=== PATIENT | female | born 1990 | race American Indian/Alaskan Native ===

== ENCOUNTER 2021-06-26 14:29 | Emergency (ER) | payer SELFPAY ==
[2021-06-26 15:56] LABS: Basophils # (Auto) 0.1 K/mm3 (0.0-0.1); Basophils % (Auto) 1.1 % (0.0-1.8); Eosinophils % (Auto) 0.4 % (0.0-4.3); Hematocrit 43.7 % (30.3-42.9); Lymphocytes # (Auto) 2.2 K/mm3 (1.2-5.4); Lymphocytes % (Auto) 34.3 % (13.4-35.0); Mean Corpuscular HGB Conc 32 % (30-34); Mean Corpuscular Volume 92 fl (79-97); Monocytes # (Auto) 0.5 K/mm3 (0.0-0.8); Monocytes % (Auto) 8.4 % (0.0-7.3); Platelet Count 349 K/mm3 (140-440); Red Blood Count 4.77 M/mm3 (3.65-5.03)
[2021-06-26 15:57] LABS: Red Cell Distribution Width 20.5 % (13.2-15.2)
[2021-06-26 16:22] LABS: Alanine Aminotransferase 50 units/L (7-56); Albumin 4.5 g/dL (3.9-5); BUN/Creatinine Ratio 9; Blood Urea Nitrogen 8 mg/dL (7-17); Calcium 8.7 mg/dL (8.4-10.2); Hemolysis Index 62
--- NOTE | 2021-06-26 19:55 | Emergency Department Report ---
<JUDITH SMALLS - Last Filed: 06/26/21 19:53> ED General Adult HPI - General Chief complaint: Alcohol Stated complaint: ETOH Time Seen by Provider: 06/26/21 14:51 Source: EMS Mode of arrival: Ambulatory Limitations: Other - History of Present Illness Initial comments: Patient presents to the emergency department via EMS per request of PD. Per EMS the patient was being either discharged or evicted from her place of living when she became irate with the staff there and they called PD. Upon PTs arrival they noticed the patient show signs of intoxication and brought to the emergency department for evaluation. Upon my initial evaluation the patient states she does not want to speak to me and begins to curse. Patient became very belligerent with staff and was trying to leave in the state of what appeared to be acute intoxication 2013 was applied. -: unknown Consistency: constant Improves with: none Worsens with: none Treatments Prior to Arrival: none - Related Data Previous Rx's Medication Instructions Recorded Last Taken Type Multivitamin with Folic Acid [[facility] 400 mcg PO QDAY #30 tablet 06/27/21 Unknown Rx One Daily Essential Tablet] Ondansetron [Zofran Odt] 4 mg PO Q8HR PRN #20 tab.rapdis 06/27/21 Unknown Rx ED Review of Systems Comment: All other systems reviewed and negative Constitutional: denies: chills, fever Eyes: denies: eye pain, eye discharge, vision change ENT: denies: ear pain, throat pain Respiratory: denies: cough, shortness of breath, wheezing Cardiovascular: denies: chest pain, palpitations Endocrine: no symptoms reported Gastrointestinal: denies: abdominal pain, nausea, diarrhea Genitourinary: denies: urgency, dysuria, discharge Musculoskeletal: denies: back pain, joint swelling, arthralgia Skin: denies: rash, lesions Neurological: denies: headache, weakness, paresthesias Psychiatric: denies: anxiety, depression Hematological/Lymphatic: denies: easy bleeding, easy bruising ED Past Medical Hx - Medications Home Medications: Home Medications Medication Instructions Recorded Confirmed Last Taken Type Multivitamin with Folic Acid [[facility] 400 mcg PO QDAY #30 tablet 06/27/21 Unknown Rx One Daily Essential Tablet] Ondansetron [Zofran Odt] 4 mg PO Q8HR PRN #20 tab.rapdis 06/27/21 Unknown Rx ED Physical Exam - General Limitations: Other General appearance: alert, in no apparent distress, appears intoxicated - Head Head exam: Present: atraumatic, normocephalic - Eye Eye exam: Present: normal appearance - ENT ENT exam: Present: mucous membranes moist - Neck Neck exam: Present: normal inspection - Respiratory Respiratory exam: Present: normal lung sounds bilaterally. Absent: respiratory distress - Cardiovascular Cardiovascular Exam: Present: normal rhythm, tachycardia. Absent: systolic murmur, diastolic murmur, rubs, gallop - GI/Abdominal GI/Abdominal exam: Present: soft, normal bowel sounds. Absent: distended, tenderness - Extremities Exam Extremities exam: Present: normal inspection - Back Exam Back exam: Present: normal inspection - Neurological Exam Neurological exam: Present: alert, oriented X3, other (Patient would not cooperate with a full exam for neurological evaluation) - Psychiatric Psychiatric exam: Present: other (Patient would not allow for complete psychiatric exam) - Skin Skin exam: Present: warm, dry, intact, normal color. Absent: rash ED Medical Decision Making - Lab Data Result diagrams: 06/26/21 15:42 06/26/21 15:42 Lab Results 06/26/21 06/26/21 06/26/21 Range/Units 15:42 15:42 15:42 WBC 6.6 (4.5-11.0) K/mm3 RBC 4.77 (3.65-5.03) M/mm3 Hgb 14.0 (10.1-14.3) gm/dl Hct 43.7 H (30.3-42.9) % MCV 92 (79-97) fl MCH 29 (28-32) pg MCHC 32 (30-34) % RDW 20.5 H (13.2-15.2) % Plt Count 349 (140-440) K/mm3 Lymph % (Auto) 34.3 (13.4-35.0) % [place] % (Auto) 8.4 H (0.0-7.3) % Eos % (Auto) 0.4 (0.0-4.3) % Baso % (Auto) 1.1 (0.0-1.8) % Lymph # (Auto) 2.2 (1.2-5.4) K/mm3 [place] # (Auto) 0.5 (0.0-0.8) K/mm3 Eos # (Auto) 0.0 (0.0-0.4) K/mm3 Baso # (Auto) 0.1 (0.0-0.1) K/mm3 Seg Neutrophils % 55.8 (40.0-70.0) % Seg Neutrophils # 3.7 (1.8-7.7) K/mm3 Sodium 147 H (137-145) mmol/L Potassium 4.5 (3.6-5.0) mmol/L Chloride 106.8 (98-107) mmol/L Carbon Dioxide 20 L (22-30) mmol/L Anion Gap 25 mmol/L BUN 8 (7-17) mg/dL Creatinine 0.9 (0.6-1.2) mg/dL Estimated GFR > 60 ml/min BUN/Creatinine Ratio 9 % Glucose 105 H (65-100) mg/dL Calcium 8.7 (8.4-10.2) mg/dL Total Bilirubin 0.40 (0.1-1.2) mg/dL AST 72 H (5-40) units/L ALT 50 (7-56) units/L Alkaline Phosphatase 74 (35-129) units/L Total Protein 8.2 (6.3-8.2) g/dL Albumin 4.5 (3.9-5) g/dL Albumin/Globulin Ratio 1.2 % Plasma/Serum Alcohol 0.46 H (0-0.07) % - Medical Decision Making 2012 applied Awaiting EtOH clearance ED Disposition Clinical Impression: Alcohol intoxication Disposition: 01 HOME / SELF CARE / HOMELESS Condition: Good Instructions: Alcohol Intoxication, [id number] Additional Instructions: We recommend that the patient not drive or operate motor vehicles until cleared to do so by her primary care doctor. We recommend follow-up with a primary care doctor within the next month. We recommend the patient avoid consumption of alcohol. We recommend that the patient drink 4 to 6 cups of water per day indefinitely. Advance diet as tolerated. Patient is likely feeling weak, dehydrated and nauseous, likely secondary to alcohol intoxication, and subsequent hangover. Please return to the emergency room right away with new pain, worsened pain, migration of pain, projectile vomiting, change in mental status, confusion, inability to tolerate liquid feeds, new, worsened or different symptoms not present on the initial emergency room evaluation. Referrals: [facility] [Provider Group] - 3-5 Days PRIMARY CARE, [Primary Care Provider] - 3-5 Days <SWEETIE GAINES - Last Filed: 06/27/21 02:05> ED Course - Reevaluation(s) Reevaluation #1: 06/26/21 23:05 Received sign-out from Dr Smalls. Pt with initial ETOH of 460. Pt has slurred speech, is obviously still intoxicated. Pt unable to find a ride home. Will continue to monitor until sober. ED Medical Decision Making - Lab Data Result diagrams: 06/26/21 15:42 06/26/21 15:42 <REYNASHEILA - Last Filed: 06/27/21 06:02> ED Review of Systems ROS: Stated complaint: ETOH Other details as noted in HPI ED Course Vital Signs 06/26/21 06/26/21 06/26/21 15:13 16:18 20:30 Temperature 98.7 F Pulse Rate 110 H 116 H Respiratory 16 19 Rate Blood Pressure 149/69 138/101 [Right] O2 Sat by Pulse 98 99 Oximetry 06/27/21 01:15 Temperature 98.5 F Pulse Rate 94 H Respiratory 16 Rate Blood Pressure 151/92 [Right] O2 Sat by Pulse 100 Oximetry - Reevaluation(s) Reevaluation #1: 06/27/21 06:00 Patient signed out to me from Dr. Gaines. Patient has been in this department for approximately 16 hours. At this point in time, the patient is awake, alert, oriented, sober, and exhibits decision-making capacity. She tells me that she feels dehydrated. She is drinking ice water. She is not homicidal suicidal. She is not having hallucinations. She states that she has a safe place to go. She believes that she is not . Advised patient to avoid recreational alcohol consumption. We discussed moderation. She is also interested in following up with a local primary care doctor. Outpatient resources provided. Return precautions are reviewed. 2012 will be discontinued. ED Medical Decision Making - Lab Data Result diagrams: 06/26/21 15:42 06/26/21 15:42 Lab Results 06/26/21 06/26/21 06/26/21 Range/Units 15:42 15:42 15:42 WBC 6.6 (4.5-11.0) K/mm3 RBC 4.77 (3.65-5.03) M/mm3 Hgb 14.0 (10.1-14.3) gm/dl Hct 43.7 H (30.3-42.9) % MCV 92 (79-97) fl MCH 29 (28-32) pg MCHC 32 (30-34) % RDW 20.5 H (13.2-15.2) % Plt Count 349 (140-440) K/mm3 Lymph % (Auto) 34.3 (13.4-35.0) % [place] % (Auto) 8.4 H (0.0-7.3) % Eos % (Auto) 0.4 (0.0-4.3) % Baso % (Auto) 1.1 (0.0-1.8) % Lymph # (Auto) 2.2 (1.2-5.4) K/mm3 [place] # (Auto) 0.5 (0.0-0.8) K/mm3 Eos # (Auto) 0.0 (0.0-0.4) K/mm3 Baso # (Auto) 0.1 (0.0-0.1) K/mm3 Seg Neutrophils % 55.8 (40.0-70.0) % Seg Neutrophils # 3.7 (1.8-7.7) K/mm3 Sodium 147 H (137-145) mmol/L Potassium 4.5 (3.6-5.0) mmol/L Chloride 106.8 (98-107) mmol/L Carbon Dioxide 20 L (22-30) mmol/L Anion Gap 25 mmol/L BUN 8 (7-17) mg/dL Creatinine 0.9 (0.6-1.2) mg/dL Estimated GFR > 60 ml/min BUN/Creatinine Ratio 9 % Glucose 105 H (65-100) mg/dL Calcium 8.7 (8.4-10.2) mg/dL Total Bilirubin 0.40 (0.1-1.2) mg/dL AST 72 H (5-40) units/L ALT 50 (7-56) units/L Alkaline Phosphatase 74 (35-129) units/L Total Protein 8.2 (6.3-8.2) g/dL Albumin 4.5 (3.9-5) g/dL Albumin/Globulin Ratio 1.2 % Plasma/Serum Alcohol 0.46 H (0-0.07) % Vital Signs 06/26/21 06/26/21 06/26/21 15:13 16:18 20:30 Temperature 98.7 F Pulse Rate 110 H 116 H Respiratory 16 19 Rate Blood Pressure 149/69 138/101 [Right] O2 Sat by Pulse 98 99 Oximetry 06/27/21 01:15 Temperature 98.5 F Pulse Rate 94 H Respiratory 16 Rate Blood Pressure 151/92 [Right] O2 Sat by Pulse 100 Oximetry Critical care attestation.: If time is entered above; I have spent that time in minutes in the direct care of this critically ill patient, excluding procedure time. ED Disposition Is pt being admited?: No Does the pt Need Aspirin: No
[2021-06-27 02:16] VITALS: BP 151/92
== END 2021-06-27 06:53 | disposition home or self-care (01) ==
LOC: ED 14:29
DX: F10.129 Alcohol abuse with intoxication, unspecified (principal)
CPT/HCPCS: 36415; 80053; 80320; 85025; 99284; G0480

== ENCOUNTER 2021-07-25 09:49 | Inpatient (IN) | payer SELFPAY ==
--- NOTE | 2021-07-25 09:55 | Emergency Department Report ---
ED Lower Extremity HPI - General Chief Complaint: Extremity Injury, Lower Stated Complaint: Foot twisted going down stairs Time Seen by Provider: 07/25/21 09:51 Source: patient Mode of arrival: Ambulatory Limitations: No Limitations - History of Present Illness Initial Comments: 31 year female presents to ED with complaints of right ankle/foot pain and i njury. Onset yesterday. Patient states she was walking down stairs when she slipped, twisted her ankle and fell. She states she was walking down the stairs and was on the either the 4th or 5th steps when she fell. She states she thinks the steps were wet. This occurred at home. She reports associated swelling, bruising and inability to bear weight on that right ankle/foot since the injury. She states that last night she tried icing it as well as taking Tylenol and elevating it but without much relief. She denies any prior injury to her right ankle or foot in the past. MD Complaint: ankle injury, foot injury -: Last night - Related Data Previous Rx's Medication Instructions Recorded Last Taken Type Multivitamin with Folic Acid [[facility]vs 400 mcg PO QDAY #30 tablet 06/27/21 Unknown Rx One Daily Essential Tablet] Ondansetron [Zofran Odt] 4 mg PO Q8HR PRN #20 tab.rapdis 06/27/21 Unknown Rx Allergies Allergy/AdvReac Type Severity Reaction Status Date / Time ziprasidone [From Geodon] Allergy Severe Anaphylaxis Verified 07/25/21 12:54 ED Review of Systems ROS: Stated complaint: Foot twisted going down stairs Other details as noted in HPI Comment: All other systems reviewed and negative Constitutional: denies: chills, fever Respiratory: denies: cough, shortness of breath, wheezing Cardiovascular: denies: chest pain, palpitations Musculoskeletal: joint swelling, arthralgia Skin: change in color Neurological: abnormal gait Psychiatric: denies: anxiety, depression, auditory hallucinations, visual hallucinations, homicidal thoughts Hematological/Lymphatic: denies: easy bleeding, easy bruising ED Past Medical Hx - Medications Home Medications: Home Medications Medication Instructions Recorded Confirmed Last Taken Type Multivitamin with Folic Acid [[facility]vs 400 mcg PO QDAY #30 tablet 06/27/21 Unknown Rx One Daily Essential Tablet] Ondansetron [Zofran Odt] 4 mg PO Q8HR PRN #20 tab.rapdis 06/27/21 Unknown Rx ED Physical Exam - General Limitations: No Limitations General appearance: alert, in distress (mild secondary to pain ), obese - Head Head exam: Present: atraumatic, normocephalic, normal inspection - Eye Eye exam: Present: normal appearance, PERRL, EOMI Pupils: Present: normal accommodation - Respiratory Respiratory exam: Absent: respiratory distress - Cardiovascular Cardiovascular Exam: Present: regular rate - Expanded Lower Extremity Exam Right Ankle exam: Present: tenderness (severe ttp diffusely about right ankle especially medial aspect ), swelling (moderate), abrasion (superficial anterior ankle ), ecchymosis (moderate). Absent: full ROM, laceration, deformity, crepidus, dislocation, erythema Foot/Toe exam: Present: tenderness (dorsal foot ), swelling (mild to mod ), ecchymosis (mild mainly around heel ), tenderness at base of 5th metatarsal (mild ). Absent: full ROM, abrasion, laceration, deformity, crepidus, dislocation, erythema, amputation, puncture wound, nail avulsion, subungual hematoma Neuro vascular tendon exam: Present: no vascular compromise. Absent: abnormal cap refill, motor deficit, sensory deficit, tendon deficit Gait: Positive: not tested/not observed - Neurological Exam Neurological exam: Present: alert, oriented X3, CN II-XII intact - Psychiatric Psychiatric exam: Present: normal affect, normal mood ED Course Vital Signs 07/25/21 07/25/21 07/25/21 10:30 10:31 10:56 Temperature 97.8 F Pulse Rate 110 H Respiratory 16 16 16 Rate Blood Pressure 147/109 [Left] Blood Pressure [Right] O2 Sat by Pulse 99 Oximetry 07/25/21 11:19 Temperature 97.6 F Pulse Rate 102 H Respiratory 16 Rate Blood Pressure [Left] Blood Pressure 145/103 [Right] O2 Sat by Pulse 97 Oximetry ED Lower Extremity MDM - Radiology Data Radiology results: report reviewed Patient: CHRIS WILCOX MR#: [id number] : 1990 Acct:[id number] Age/Sex: 31 / F ADM Date: 07/25/21 Loc: ED Attending Dr: Ordering Physician: AGUSTIN BLAIR Date of Service: 07/25/21 Procedure(s): XR ankle 3+V RT Accession Number(s): [id number] cc: AGUSTIN KumarMc JOHNNIE Fluoro Time In Minutes: RIGHT TIBIA AND FIBULA 2 VIEWS RIGHT ANKLE 3 VIEWS RIGHT FOOT 2 VIEWS INDICATION: Twisting injury/fall down stairs. COMPARISON: None. IMPRESSION: There is a comminuted mildly displaced fracture in the distal shaft of the fibula approximately 5 cm from the ankle joint. There is a transverse fracture at the base of the medial malleolus. The proximal tibia and fibula are intact. There is lateral subluxation of the talar dome with respect to the distal tibia and widening of the distal tibiofibular syndesmosis. Bones of the right foot are intact with no evidence for fracture or joint pathology. Signer Name: Zane Saini Jr, MD Signed: 07/25/2021 11:12 AM Workstation Name: [id number] Transcribed By: TTR Dictated By: ZANE SAINI JR, MD Electronically Authenticated By: ZANE SAINI JR, MD Signed Date/Time: 07/25/21 1112 DD/ 1109 TD/TT: - Medical Decision Making Xrays reviewed -- IMPRESSION: There is a comminuted mildly displaced fracture in the distal shaft of the fibula approximately 5 cm from the ankle joint. There is a transverse fracture at the base of the medial malleolus. The proximal tibia and fibula are intact. There is lateral subluxation of the talar dome with respect to the distal tibia and widening of the distal tibiofibular syndesmosis. Bones of the right foot are intact with no evidence for fracture or joint pathology. Discussed case with Dr Butts, he recommend discussing case with Dr Wills, but patient will be placed in christi splint. Additional pain meds ordered to help with splint placement. Discussed case with Dr Wills, he reviewed xray results, he agree with christi splint and recommend admitting patient to hospitalist service and he will come see patient for surgery 1244: Discussed case with hospitalist, Dr Byrne for admission. Critical care attestation.: If time is entered above; I have spent that time in minutes in the direct care of this critically ill patient, excluding procedure time. ED Disposition Clinical Impression: Fractured medial malleolus, Closed fibular fracture Disposition: ADMITTED INPATIENT Is pt being admited?: Yes Does the pt Need Aspirin: No Condition: Stable Referrals: PRIMARY CARE, [Primary Care Provider] - 3-5 Days
[2021-07-25] MEDS ORDERED: HYDROcodone/ACETAMINOPHEN 5-325 MG TAB PO NR (10:30)
[2021-07-25] MEDS ORDERED: IBUPROFEN 600 MG TAB PO NR (10:30)
--- NOTE | 2021-07-25 11:16 | XRay Report ---
RIGHT TIBIA AND FIBULA 2 VIEWS RIGHT ANKLE 3 VIEWS RIGHT FOOT 2 VIEWS INDICATION: Twisting injury/fall down stairs. COMPARISON: None. IMPRESSION: There is a comminuted mildly displaced fracture in the distal shaft of the fibula approx imately 5 cm from the ankle joint. There is a transverse fracture at the base of the medial malleolus . The proximal tibia and fibula are intact. There is lateral subluxation of the talar dome with respect to the distal tibia and widening of the d istal tibiofibular syndesmosis. Bones of the right foot are intact with no evidence for fracture or joint pathology. Signer Name: Zane Saini Jr, MD Signed: 07/25/2021 11:12 AM Workstation Name: [id number]
[2021-07-25] MEDS ORDERED: KETOROLAC 30 MG/1 ML INJ IV ONE (11:42)
[2021-07-25] MEDS ORDERED: HYDROmorphone 1 MG/1 ML INJ IV ONE (11:42)
[2021-07-25] MEDS ORDERED: ONDANSETRON 4 MG/2 ML INJ IV ONE (11:42)
--- NOTE | 2021-07-25 11:42 | Event Note ---
Date of service: 07/25/21 Face to Face: For this encounter I have reviewed the PA/[employer]PECTOR documentation, treatment plan, medical decision making, and I had face to face time with this patient. Patient is a 31-year-old female, who states that she is not , coming in with right ankle fracture, and right distal lower extremity fracture which was sustained yesterday. She is neurovascularly intact. Her compartments are soft. The patient unfortunately does not have medical insurance. She has not, to be able to follow-up in a timely fashion. Her x-rays and physical exam were discussed with our consulting orthopedic physician, Dr. Wills. He is also evaluated this patient's x-rays personally. He recommends admission for emergent surgical fixation. Discussed this with the patient and her significant other, with her consent. The patient is agreeable to admission. Have ordered pain medication, right lower extremity [place] splint, appropriate preop laboratory studies. Physician prosthetics assistant to arrange admission. Discussed this with the patient and her significant other. All questions answered. 14: 00; 07/25/2021 Patient having difficulty with splint application. Additional pain medication ordered per protocol. Offered patient moderate sedation with closed reduction, and splint application. Discussed risks, benefits and alternatives. Patient awake, alert, oriented and demonstrates sound mind and decision-making capacity. She does not want to have a moderate sedation performed. She states that she will "tough it out", with parenteral medication. RIGHT TIBIA AND FIBULA 2 VIEWS RIGHT ANKLE 3 VIEWS RIGHT FOOT 2 VIEWS INDICATION: Twisting injury/fall down stairs. COMPARISON: None. IMPRESSION: There is a comminuted mildly displaced fracture in the distal shaft of the fibula approximately 5 cm from the ankle joint. There is a transverse fracture at the base of the medial malleolus. The proximal tibia and fibula are intact. There is lateral subluxation of the talar dome with respect to the distal tibia and widening of the distal tibiofibular syndesmosis. Bones of the right foot are intact with no evidence for fracture or joint pathology. Signer Name: Zane Saini Jr, MD Signed: 07/25/2021 10:12 AM Workstation Name: [id number] RIGHT TIBIA AND FIBULA 2 VIEWS RIGHT ANKLE 3 VIEWS RIGHT FOOT 2 VIEWS INDICATION: Twisting injury/fall down stairs. COMPARISON: None. IMPRESSION: There is a comminuted mildly displaced fracture in the distal shaft of the fibula approximately 5 cm from the ankle joint. There is a transverse fracture at the base of the medial malleolus. The proximal tibia and fibula are intact. There is lateral subluxation of the talar dome with respect to the distal tibia and widening of the distal tibiofibular syndesmosis. Bones of the right foot are intact with no evidence for fracture or joint pathology. Signer Name: Zane Saini Jr, MD Signed: 07/25/2021 10:12 AM Workstation Name: [id number] RIGHT TIBIA AND FIBULA 2 VIEWS RIGHT ANKLE 3 VIEWS RIGHT FOOT 2 VIEWS INDICATION: Twisting injury/fall down stairs. COMPARISON: None. IMPRESSION: There is a comminuted mildly displaced fracture in the distal shaft of the fibula approximately 5 cm from the ankle joint. There is a transverse fracture at the base of the medial malleolus. The proximal tibia and fibula are intact. There is lateral subluxation of the talar dome with respect to the distal tibia and widening of the distal tibiofibular syndesmosis. Bones of the right foot are intact with no evidence for fracture or joint pathology. Signer Name: Zane Saini Jr, MD Signed: 07/25/2021 10:12 AM Workstation Name: [id number] Vital Signs 07/25/21 07/25/21 07/25/21 10:30 10:31 10:56 Temperature 97.8 F Pulse Rate 110 H Respiratory 16 16 16 Rate Blood Pressure 147/109 [Left] Blood Pressure [Right] O2 Sat by Pulse 99 Oximetry 07/25/21 11:19 Temperature 97.6 F Pulse Rate 102 H Respiratory 16 Rate Blood Pressure [Left] Blood Pressure 145/103 [Right] O2 Sat by Pulse 97 Oximetry
[2021-07-25] MEDS ORDERED: TETANUS,DIPH,PERTUSS(ACELL) VACCINE 0.5 ML SYRINGE IM ONE (12:22)
--- NOTE | 2021-07-25 12:44 | History and Physical Report ---
History of Present Illness Chief complaint: I slipped and fell while walking down the stairs History of present illness: 31 YO Female with Obesity Hypoventilation Syndrome presents to ED for evaluation. Patient reports "I slipped and fell while walking down stairs". Patient states that she was in her home and walking down the stairs when she slipped and fell and fell down 4-5 steps and twisted her right ankle. Patient states that she experienced swelling, pain and inability to bear weight on the right foot. Patient transported to [facility] via private vehicle for further care and evaluation of the aforementioned symptoms. The patient was seen and evaluated in the emergency department. All lab and imaging studies reviewed. Patient underwent x-ray of the right ankle and was found to have right distal fibula f racture, and right medial malleolus fracture. Orthopedic surgery service consulted in ED. Patient is pending surgical intervention. Patient denies fever, chills, chest pain, palpitation, productive cough, skin rash, syncope, recent ill contacts, known exposure to COVID-19. No prior admission for review. No medication listed at time of admission reconciliation. Past History Past Medical History: other (See HPI) Past Surgical History: No surgical history, Other (Reviewed) Social history: single. denies: smoking, alcohol abuse, prescription drug abuse Family history: hypertension Medications and Allergies Allergies Allergy/AdvReac Type Severity Reaction Status Date / Time ziprasidone [From Argenis] Allergy Severe Anaphylaxis Verified 07/25/21 12:54 Home Medications Medication Instructions Recorded Confirmed Last Taken Type No Known Home Medications [No 07/25/21 07/25/21 Unknown History Reported Home Medications] Review of Systems Constitutional: no weight loss, no weight gain, no fever, no chills Ears, nose, mouth and throat: no ear pain, no ear discharge, no decreased hearing, no nose pain, no nasal discharge, no sinus pressure Breasts: no swelling, no mass Cardiovascular: no chest pain, no orthopnea, no palpitations, no syncope, no lightheadedness Respiratory: no cough, no cough with sputum, no excessive sputum, no shortness of breath Gastrointestinal: no abdominal pain, no nausea, no vomiting, no constipation Genitourinary Female: no pelvic pain, no flank pain, no dysuria, no urinary frequency, no urgency Rectal: no pain, no incontinence, no bleeding Musculoskeletal: other (Right foot pain and swelling), no neck stiffness, no neck pain, no shooting arm pain, no low back pain Integumentary: no rash, no pruritis, no redness, no jaundice, no boils Neurological: no head injury, no weakness, no numbness, no seizures, no tremors Psychiatric: no anxiety, no memory loss, no insomnia, no hypersomnia, no change in libido, no suicidal ideation Endocrine: no cold intolerance, no polyphagia, no polyuria Hematologic/Lymphatic: no easy bruising, no lymphadenopathy Allergic/Immunologic: no persistent infections, no anaphylaxis Exam - Constitutional Vitals: Temp Pulse Resp BP Pulse Ox 97.6 F 102 H 16 145/103 97 07/25/21 11:19 07/25/21 11:19 07/25/21 11:19 07/25/21 11:19 07/25/21 11:19 General appearance: Present: mild distress, obese - EENT Eyes: Present: PERRL ENT: hearing intact, clear oral mucosa - Neck Neck: Present: supple, normal ROM - Respiratory Respiratory effort: normal Respiratory: bilateral: CTA - Cardiovascular Heart Sounds: Present: S1 & S2. Absent: rub, click - Extremities Extremities: pulses symmetrical, No edema Extremity abnormal: edema, tenderness, other (Right lower extremity) Peripheral Pulses: within normal limits - Abdominal General gastrointestinal: Present: soft, non-tender, non-distended, normal bowel sounds Female genitourinary: Present: normal - Integumentary Integumentary: Present: clear, warm, dry - Musculoskeletal Musculoskeletal: gait normal, strength equal bilaterally - Psychiatric Psychiatric: appropriate mood/affect, intact judgment & insight - Neurologic Neurologic: CNII-XII intact, moves all extremities Results - Labs CBC & Chem 7: 07/25/21 15:49 07/25/21 15:49 Assessment and Plan - Patient Problems (1) Fractured medial malleolus Current Visit: Yes Status: Acute Qualifiers: Encounter type: initial encounter Plan to address problem: Orthopedic surgery service consulted, x-ray right ankle, patient is pending surgical intervention. (2) Closed fibular fracture Current Visit: Yes Status: Acute Qualifiers: Encounter type: initial encounter Plan to address problem: Orthopedic surgery service consulted, patient is pending surgical intervention, pain control, supportive care. (3) Pain Current Visit: Yes Status: Acute Plan to address problem: Pain control, pain assessment as per nursing protocol, supportive care. (4) Obesity hypoventilation syndrome Current Visit: Yes Status: Acute Plan to address problem: Balanced diet, increase physical activity at discharge, outpatient pulmonary follow-up for sleep study. (5) DVT prophylaxis Current Visit: Yes Status: Acute Plan to address problem: SCD to bilateral lower extremities while in bed
[2021-07-25] MEDS ORDERED: ACETAMINOPHEN 325 MG TAB PO PRN (12:45)
[2021-07-25] MEDS ORDERED: ONDANSETRON 4 MG/2 ML INJ IV PRN (12:45)
[2021-07-25] MEDS ORDERED: HYDROmorphone 1 MG/1 ML INJ IV PRN (12:45)
[2021-07-25 16:20] LABS: Hematocrit 36.9 % (30.3-42.9); Hemoglobin 12.1 gm/dl (10.1-14.3); Mean Corpuscular HGB Conc 33 % (30-34); Mean Corpuscular Volume 91 fl (79-97); Platelet Count 206 K/mm3 (140-440); Red Blood Count 4.04 M/mm3 (3.65-5.03); Red Cell Distribution Width 16.5 % (13.2-15.2)
[2021-07-25 16:25] LABS: Blood Urea Nitrogen 12 mg/dL (7-17); Calcium 9.4 mg/dL (8.4-10.2); Hemolysis Index 34
[2021-07-25 16:31] LABS: INR 0.84 (0.87-1.13)
[2021-07-25] MEDS: SODIUM CHLORIDE 0.9% 1000 ML 1,000 ML IV SCH (16:35)
[2021-07-25 16:39] LABS: BUN/Creatinine Ratio 17
[2021-07-25 16:42] LABS: Partial Thromboplastin Time 28.6 Sec. (24.2-36.6)
[2021-07-25] MEDS ORDERED: HYDROmorphone 1 MG/1 ML INJ IM PRN (23:06)
[2021-07-25] MEDS: HYDROmorphone 1 MG/1 ML INJ IV PRN (23:21)
[2021-07-26] MEDS: oxyCODONE /ACETAMINOPHEN 5-325MG TAB PO PRN ×2 (07:48→14:55)
--- NOTE | 2021-07-26 09:21 | Progress Note ---
Assessment and Plan Assessment and plan: - Patient Problems (1) Fractured medial malleolus Current Visit: Yes Status: Acute Qualifiers: Encounter type: initial encounter Plan to address problem: Orthopedic surgery service consulted, x-ray right ankle, patient is pending surgical intervention. (2) Closed fibular fracture Current Visit: Yes Status: Acute Qualifiers: Encounter type: initial encounter Plan to address problem: Orthopedic surgery service consulted, patient is pending surgical intervention, pain control, supportive care. (3) Pain Current Visit: Yes Status: Acute Plan to address problem: Pain control, pain assessment as per nursing protocol, supportive care. (4) Obesity hypoventilation syndrome Current Visit: Yes Status: Acute Plan to address problem: Balanced diet, increase physical activity at discharge, outpatient pulmonary follow-up for sleep study. (5) DVT prophylaxis Current Visit: Yes Status: Acute Plan to address problem: SCD to bilateral lower extremities while in bed 07/26/21 Patient fell and had ankle fracture: medial malleolus and fibula. Orthopedic Surgeon consulted. For surgery tomorrow. History Interval history: pain right ankle at site of fracture Hospitalist Physical - Physical exam Narrative exam: Gen: Not in acute distress, morbidly obese, lying in bed HEENT: Normocephalic, atraumatic Neck: supple, no JVD Lungs: Clear to auscultation, no rales, no wheeze Heart:S1 and S2 reg, no murmurs, rubs or gallop Abd: soft, non-tender,non-distended, normal bowel sounds Ext: Right foot nd ankle covered with splint Neuro:AAO x 3, no focal neurological signs - Constitutional Vitals: Temp Pulse Resp BP Pulse Ox 98.7 F 96 H 18 124/77 97 07/26/21 04:11 07/26/21 04:11 07/26/21 04:11 07/26/21 04:11 07/26/21 08:53 General appearance: Present: mild distress, obese Results - Labs CBC & Chem 7: 07/25/21 15:49 07/25/21 15:49 Labs: Laboratory Last Values WBC 6.3 K/mm3 (4.5-11.0) 07/25/21 15:49 RBC 4.04 M/mm3 (3.65-5.03) 07/25/21 15:49 Hgb 12.1 gm/dl (10.1-14.3) 07/25/21 15:49 Hct 36.9 % (30.3-42.9) 07/25/21 15:49 MCV 91 fl (79-97) 07/25/21 15:49 MCH 30 pg (28-32) 07/25/21 15:49 MCHC 33 % (30-34) 07/25/21 15:49 RDW 16.5 % (13.2-15.2) H 07/25/21 15:49 Plt Count 206 K/mm3 (140-440) 07/25/21 15:49 PT 12.5 Sec. (12.2-14.9) 07/25/21 15:49 INR 0.84 (0.87-1.13) L 07/25/21 15:49 APTT 28.6 Sec. (24.2-36.6) 07/25/21 15:49 Sodium 135 mmol/L (137-145) L 07/25/21 15:49 Potassium 3.9 mmol/L (3.6-5.0) 07/25/21 15:49 Chloride 96.6 mmol/L (98-107) L 07/25/21 15:49 Carbon Dioxide 24 mmol/L (22-30) 07/25/21 15:49 Anion Gap 18 mmol/L 07/25/21 15:49 BUN 12 mg/dL (7-17) 07/25/21 15:49 Creatinine 0.7 mg/dL (0.6-1.2) 07/25/21 15:49 Estimated GFR > 60 ml/min 07/25/21 15:49 BUN/Creatinine Ratio 17 % 07/25/21 15:49 Glucose 91 mg/dL (65-100) 07/25/21 15:49 Calcium 9.4 mg/dL (8.4-10.2) 07/25/21 15:49 Total Creatine Kinase 358 units/L (30-135) H 07/25/21 15:49 HCG, Quant < 2 mIU/mL (0-4) 07/25/21 15:49 Guy/IV: Voiding Method Bedside Commode Active Medications - Current Medications Current Medications: Generic Name Dose Route Start Last Admin Trade Name Freq PRN Reason Stop Dose Admin Acetaminophen 650 mg 07/25/21 12:45 Acetaminophen 325 Mg Tab PO Q4H PRN Pain MILD(1-3)/Fever >100.5/ALEJANDRO Hydromorphone HCl 0.5 mg 07/25/21 23:15 07/25/21 23:21 Hydromorphone 1 Mg/1 Ml Inj IV 0.5 mg Q4H PRN Administration Pain , Severe (7-10) Sodium Chloride 1,000 mls @ 125 mls/hr 07/25/21 12:45 07/25/21 16:35 Nacl 0.9% 1000 Ml IV 125 mls/hr DIRECT KATIA Administration Ondansetron HCl 4 mg 07/25/21 12:45 Ondansetron 4 Mg/2 Ml Inj IV Q8H PRN Nausea And Vomiting Oxycodone/Acetaminophen 1 tab 07/25/21 12:45 07/26/21 07:48 Oxycodone /Acetaminophen 5-325mg Tab PO 1 tab Q6H PRN Administration Pain, Moderate (4-6) Sodium Chloride 10 ml 07/25/21 22:00 07/26/21 01:10 Sodium Chloride 0.9% 10 Ml Flush Syringe IV 10 ml BID KATIA Administration Sodium Chloride 10 ml 07/25/21 12:45 Sodium Chloride 0.9% 10 Ml Flush Syringe IV PRN PRN LINE FLUSH
[2021-07-26] MEDS: SODIUM CHLORIDE 0.9% 1000 ML 1,000 ML IV SCH ×2 (16:55→21:45)
[2021-07-26] MEDS: HYDROmorphone 1 MG/1 ML INJ IV PRN (21:44)
[2021-07-27 05:05] LABS: Hematocrit 33.6 % (30.3-42.9); Mean Corpuscular HGB Conc 33 % (30-34); Mean Corpuscular Volume 91 fl (79-97); Platelet Count 161 K/mm3 (140-440); Red Blood Count 3.71 M/mm3 (3.65-5.03); Red Cell Distribution Width 16.8 % (13.2-15.2)
[2021-07-27 05:30] LABS: Blood Urea Nitrogen 12 mg/dL (7-17); Calcium 8.5 mg/dL (8.4-10.2); Hemolysis Index 4
[2021-07-27 05:42] LABS: BUN/Creatinine Ratio 20
[2021-07-27] MEDS: HYDROmorphone 1 MG/1 ML INJ IV PRN ×3 (05:57→16:05)
[2021-07-27] MEDS: SODIUM CHLORIDE 0.9% 1000 ML 1,000 ML IV SCH (08:54)
--- NOTE | 2021-07-27 09:54 | Progress Note ---
Assessment and Plan Assessment and plan: - Patient Problems (1) Fractured medial malleolus Current Visit: Yes Status: Acute Qualifiers: Encounter type: initial encounter Plan to address problem: Orthopedic surgery service consulted, x-ray right ankle, patient is pending surgical intervention. (2) Closed fibular fracture Current Visit: Yes Status: Acute Qualifiers: Encounter type: initial encounter Plan to address problem: Orthopedic surgery service consulted, patient is pending surgical intervention, pain control, supportive care. (3) Pain Current Visit: Yes Status: Acute Plan to address problem: Pain control, pain assessment as per nursing protocol, supportive care. (4) Obesity hypoventilation syndrome Current Visit: Yes Status: Acute Plan to address problem: Balanced diet, increase physical activity at discharge, outpatient pulmonary follow-up for sleep study. (5) DVT prophylaxis Current Visit: Yes Status: Acute Plan to address problem: SCD to bilateral lower extremities while in bed 07/26/21 Patient fell and had ankle fracture: medial malleolus and fibula. Orthopedic Surgeon consulted. For surgery tomorrow. 07/27/21 Patient with ankle fracture after fall. For surgery today. History Interval history: pain right ankle at site of fracture Hospitalist Physical - Physical exam Narrative exam: Gen: Not in acute distress, morbidly obese, lying in bed HEENT: Normocephalic, atraumatic Neck: supple, no JVD Lungs: Clear to auscultation, no rales, no wheeze Heart:S1 and S2 reg, no murmurs, rubs or gallop Abd: soft, non-tender,non-distended, normal bowel sounds Ext: Right foot and ankle covered with splint Neuro:AAO x 3, no focal neurological signs - Constitutional Vitals: Temp Pulse Resp BP Pulse Ox 99.2 F 86 18 126/79 97 07/27/21 05:05 07/27/21 05:05 07/27/21 08:00 07/27/21 05:05 07/27/21 08:00 General appearance: Present: obese Results - Labs CBC & Chem 7: 07/27/21 04:45 07/27/21 04:45 Labs: Laboratory Last Values WBC 6.2 K/mm3 (4.5-11.0) 07/27/21 04:45 RBC 3.71 M/mm3 (3.65-5.03) 07/27/21 04:45 Hgb 11.0 gm/dl (10.1-14.3) 07/27/21 04:45 Hct 33.6 % (30.3-42.9) 07/27/21 04:45 MCV 91 fl (79-97) 07/27/21 04:45 MCH 30 pg (28-32) 07/27/21 04:45 MCHC 33 % (30-34) 07/27/21 04:45 RDW 16.8 % (13.2-15.2) H 07/27/21 04:45 Plt Count 161 K/mm3 (140-440) 07/27/21 04:45 PT 12.5 Sec. (12.2-14.9) 07/25/21 15:49 INR 0.84 (0.87-1.13) L 07/25/21 15:49 APTT 28.6 Sec. (24.2-36.6) 07/25/21 15:49 Sodium 135 mmol/L (137-145) L 07/27/21 04:45 Potassium 4.2 mmol/L (3.6-5.0) 07/27/21 04:45 Chloride 102.4 mmol/L (98-107) 07/27/21 04:45 Carbon Dioxide 22 mmol/L (22-30) 07/27/21 04:45 Anion Gap 15 mmol/L 07/27/21 04:45 BUN 12 mg/dL (7-17) 07/27/21 04:45 Creatinine 0.6 mg/dL (0.6-1.2) 07/27/21 04:45 Estimated GFR > 60 ml/min 07/27/21 04:45 BUN/Creatinine Ratio 20 % 07/27/21 04:45 Glucose 98 mg/dL (65-100) 07/27/21 04:45 Calcium 8.5 mg/dL (8.4-10.2) 07/27/21 04:45 Total Creatine Kinase 173 units/L (30-135) H 07/27/21 04:45 HCG, Quant < 2 mIU/mL (0-4) 07/25/21 15:49 Guy/IV: Voiding Method Bedside Commode Active Medications - Current Medications Current Medications: Generic Name Dose Route Start Last Admin Trade Name Freq PRN Reason Stop Dose Admin Acetaminophen 650 mg 07/25/21 12:45 Acetaminophen 325 Mg Tab PO Q4H PRN Pain MILD(1-3)/Fever >100.5/ALEJANDRO Hydromorphone HCl 0.5 mg 07/25/21 23:15 07/27/21 05:57 Hydromorphone 1 Mg/1 Ml Inj IV 0.5 mg Q4H PRN Administration Pain , Severe (7-10) Sodium Chloride 1,000 mls @ 75 mls/hr 07/25/21 12:45 07/27/21 08:54 Nacl 0.9% 1000 Ml IV 125 mls/hr DIRECT KATIA Administration Ondansetron HCl 4 mg 07/25/21 12:45 Ondansetron 4 Mg/2 Ml Inj IV Q8H PRN Nausea And Vomiting Oxycodone/Acetaminophen 1 tab 07/25/21 12:45 07/26/21 14:55 Oxycodone /Acetaminophen 5-325mg Tab PO 1 tab Q6H PRN Administration Pain, Moderate (4-6) Sodium Chloride 10 ml 07/25/21 22:00 07/27/21 08:59 Sodium Chloride 0.9% 10 Ml Flush Syringe IV 10 ml BID KATIA Administration Sodium Chloride 10 ml 07/25/21 12:45 Sodium Chloride 0.9% 10 Ml Flush Syringe IV PRN PRN LINE FLUSH
--- NOTE | 2021-07-27 12:26 | Consultation ---
History of Present Illness - HPI Consult date: 07/27/21 Consult reason: fracture History of present illness: 31 y/o female with c/o right ankle pain and swelling after fall down steps on 07/24/21, seen the [facility] where [facility] taken revealed unstable right ankle fracture with syndesmotic widening noted, no other injury noted... Past History Past Medical History: other (See HPI) Past Surgical History: No surgical history, Other (Reviewed) Social history: single. denies: smoking, alcohol abuse, prescription drug abuse Family history: hypertension Medications and Allergies Allergies Allergy/AdvReac Type Severity Reaction Status Date / Time ziprasidone [From Geodon] Allergy Severe Anaphylaxis Verified 07/25/21 12:54 Home Medications Medication Instructions Recorded Confirmed Last Taken Type No Known Home Medications [No 07/25/21 07/25/21 Unknown History Reported Home Medications] Active Meds: Active Medications Acetaminophen (Acetaminophen 325 Mg Tab) 650 mg PO Q4H PRN PRN Reason: Pain MILD(1-3)/Fever >100.5/ALEJANDRO Hydromorphone HCl (Hydromorphone 1 Mg/1 Ml Inj) 0.5 mg IV Q4H PRN PRN Reason: Pain , Severe (7-10) Last Admin: 07/27/21 05:57 Dose: 0.5 mg Documented by: Sodium Chloride (Nacl 0.9% 1000 Ml) 1,000 mls @ 75 mls/hr IV DIRECT KATIA Last Admin: 07/27/21 08:54 Dose: 125 mls/hr Documented by: Ondansetron HCl (Ondansetron 4 Mg/2 Ml Inj) 4 mg IV Q8H PRN PRN Reason: Nausea And Vomiting Oxycodone/Acetaminophen (Oxycodone /Acetaminophen 5-325mg Tab) 1 tab PO Q6H PRN PRN Reason: Pain, Moderate (4-6) Last Admin: 07/26/21 14:55 Dose: 1 tab Documented by: Sodium Chloride (Sodium Chloride 0.9% 10 Ml Flush Syringe) 10 ml IV BID KATIA Last Admin: 07/27/21 08:59 Dose: 10 ml Documented by: Sodium Chloride (Sodium Chloride 0.9% 10 Ml Flush Syringe) 10 ml IV PRN PRN PRN Reason: LINE FLUSH Physical Examination - Physical exam Narrative exam: Right ankle - + deformity, moderate swelling, skin intact, tender diffusely, decreased AROM, good cap refill Eyes: PERRL ENT: Positive: clear oral mucosa Respiratory effort: normal Respiratory: bilateral: CTA Rhythm: regular Heart Sounds: Positive: S1 & S2 General gastrointestinal: Positive: soft, non-tender, non-distended, normal bowel sounds Integumentary: clear, warm, dry Neurologic: Positive: CNII-XII intact, moves all extremities, gait normal. Negative: focal deficits - Cervical Spine Neck pain: none Tenderness with palpation: none Full ROM: yes ROM: flexion: normal ROM: extension: normal ROM: rotation right: normal ROM: rotation left: normal ROM: lateral flexion right: normal ROM: lateral flexion left: normal - Lumbar Spine Back pain: none Tenderness with palpation: none Appearance: normal Full ROM: yes ROM: flexion: normal ROM: extension: normal ROM: rotation right: normal ROM: rotation left: normal ROM: lateral flexion right: normal ROM: lateral flexion left: normal Assessment and Plan right ankle fracture with involvement distal tib-fib ligament, unstable... recommend ORIF right ankle
[2021-07-27] MEDS ORDERED: fentaNYL 100 MCG/2 ML INJ ONE ×2 (12:32→14:29)
[2021-07-27] MEDS ORDERED: MIDAZOLAM 2 MG/2 ML INJ ONE (12:32)
[2021-07-27] MEDS ORDERED: LIDOCAINE (1%) 10 MG/1 ML VIAL 20 ML MDV ONE (12:32)
[2021-07-27] MEDS ORDERED: BUPIVACAINE/PF (0.25%) 2.5 MG/ML 30 ML VIAL INFILTRATI ONE (12:32)
[2021-07-27] MEDS ORDERED: dexAMETHasone 4 MG/ML VIAL ONE (12:32)
[2021-07-27] MEDS ORDERED: LACTATED RINGERS 1,000 ML ONE ×2 (12:49→14:57)
[2021-07-27] MEDS ORDERED: LIDOCAINE MPF (2%) 20 MG/1 ML VIAL 5 ML ONE (12:49)
[2021-07-27] MEDS ORDERED: propofoL 200 MG/20 ML VIAL IV ONE (12:50)
[2021-07-27] MEDS ORDERED: ONDANSETRON 4 MG/2 ML INJ IV PRN (13:38)
--- NOTE | 2021-07-27 13:38 | Anesthesia Consultation ---
Anesthesia Consult and Med Hx Date of service: 07/27/21 - Airway Anesthetic Teeth Evaluation: Good ROM Head & Neck: Adequate Mental/Hyoid Distance: Adequate Mallampati Class: Class III Intubation Access Assessment: Possibly Difficult - Pre-Operative Health Status ASA Pre-Surgery Classification: ASA2 Proposed Anesthetic Plan: General Nerve Block: Pop - Pulmonary Hx Smoking: No Hx Respiratory Symptoms: No - Cardiovascular System Hx Hypertension: No Hx Cardia Arrhythmia: No - Central Nervous System Hx Neuromuscular Disorder: No CVA: No - Endocrine Hx Renal Disease: No Hx Liver Disease: No Hx Insulin Dependent Diabetes: No Hx Thyroid Disease: No - Other Systems Hx Obesity: Yes - Additional Comments Anesthesia Medical History Comments: No prior GA. No FHx anesthetic complications.
--- NOTE | 2021-07-27 13:38 | Anesthesia Day of Surgery ---
Anesthesia Day of Surgery - Day of Surgery Patient Examined: Yes Patient H&P Reviewed: Yes Patient is NPO: Yes
[2021-07-27] MEDS ORDERED: ceFAZolin/Water 2 GM/20 ML 2 GM/20 ML SYRINGE IV ONE (13:40)
[2021-07-27] MEDS ORDERED: ceFAZolin 1 GM VIAL ONE (13:42)
[2021-07-27] MEDS ORDERED: dexAMETHasone 20 MG/5 ML VIAL ONE (13:51)
--- NOTE | 2021-07-27 15:44 | XRay Report ---
Right ankle 3 views INDICATION: Right ankle pain IMPRESSION: Multiple fluoroscopic images demonstrate status post ORIF of the bimalleolar ankle fractu re. Fluoroscopy time: 0.5 minutes. Fluoroscopic images: 3. Signer Name: Lonnie Allan MD Signed: 07/27/2021 3:39 PM Workstation Name: [id number]
[2021-07-27] MEDS ORDERED: oxyCODONE /ACETAMINOPHEN 5-325MG TAB PO PRN (15:46)
[2021-07-27] MEDS ORDERED: KETOROLAC 30 MG/1 ML INJ IV PRN (15:46)
--- NOTE | 2021-07-27 15:54 | Procedure Note ---
Date of procedure: 07/27/21 Pre-op diagnosis: Bimalleolar fracture right ankle Post-op diagnosis: same Procedure: Open reduction internal fixation right ankle Procedure Patient was brought to the OR placed on the OR table in supine position following induction intubation by anesthesia the patient's right lower extremity was prepped and draped in the usual sterile manner. A timeout procedure was done to identify the patient and the correct operative site. The leg was then exsanguinated followed by inflation of the pneumatic tourniquet to 300 mmHg. A lateral incision was made along the middle to distal third fibula this was then taken down sharply through skin subcu the fracture site was identified patient was noted to have some moderate comminution with butterfly fragments being noted following the careful manipulation of the fragments a 10 hole one third semitubular plate was applied and held with screws of various lengths next a medial incision was made along the medial malleolus this was then taken down sharply through skin subcu the fracture fragments were again were identified and manipulated into a more reduced position this was then held in place by way of K wires following this to 4.0 cannulated screws were inserted in a parallel fashion under C-arm visualization. Next a syndesmotic screw was placed in the lateral plate using a 3.2 drill bit with foot in maximal ankle in maximum dorsiflexion the syndesmotic screw was placed a 50 mm x 4.5 fully threaded screw was inserted again with the ankle in maximum dorsiflexion under C-arm visualization the syndesmosis appear to reduce satisfactorily next the wound was then copiously irrigated and was closed in a standard routine fashion postoperative dressings were applied as well as a well-padded posterior mold patient tolerated procedure there were no complications Anesthesia: GETA Surgeon: JASON ENNIS Estimated blood loss: minimal Pathology: none Condition: stable Disposition: PACU
[2021-07-27] MEDS ORDERED: KETOROLAC 30 MG/1 ML INJ IV ONE (16:00)
--- NOTE | 2021-07-27 16:40 | Post Anesthesia Evaluation ---
- Post Anesthesia Evaluation Patient Participated: Yes Airway Patent: Yes Stable Respiratory Function: Yes Nausea/Vomiting: No Temp > 96.8F: Yes Pain Manageable: Yes Adequeate Hydration: Yes Anesthesia Complications: No
[2021-07-27] MEDS: MORPHINE 4 MG/1 ML INJ IV PRN (21:20)
[2021-07-28] MEDS: SODIUM CHLORIDE 0.9% 1000 ML 1,000 ML IV SCH (02:22)
[2021-07-28] MEDS: MORPHINE 4 MG/1 ML INJ IV PRN ×2 (02:27→08:44)
[2021-07-28 08:16] LABS: Hematocrit 33.7 % (30.3-42.9); Mean Corpuscular HGB Conc 33 % (30-34); Mean Corpuscular Volume 90 fl (79-97); Platelet Count 177 K/mm3 (140-440); Red Blood Count 3.73 M/mm3 (3.65-5.03); Red Cell Distribution Width 16.6 % (13.2-15.2)
[2021-07-28 08:37] LABS: Blood Urea Nitrogen 7 mg/dL (7-17); Calcium 8.8 mg/dL (8.4-10.2); Hemolysis Index 3
[2021-07-28 08:46] LABS: BUN/Creatinine Ratio 12
--- NOTE | 2021-07-28 09:23 | Progress Note ---
Assessment and Plan Assessment and plan: - Patient Problems (1) Fractured medial malleolus Current Visit: Yes Status: Acute Qualifiers: Encounter type: initial encounter Plan to address problem: Orthopedic surgery service consulted, x-ray right ankle, patient is pending surgical intervention. (2) Closed fibular fracture Current Visit: Yes Status: Acute Qualifiers: Encounter type: initial encounter Plan to address problem: Orthopedic surgery service consulted, patient is pending surgical intervention, pain control, supportive care. (3) Pain Current Visit: Yes Status: Acute Plan to address problem: Pain control, pain assessment as per nursing protocol, supportive care. (4) Obesity hypoventilation syndrome Current Visit: Yes Status: Acute Plan to address problem: Balanced diet, increase physical activity at discharge, outpatient pulmonary follow-up for sleep study. (5) DVT prophylaxis Current Visit: Yes Status: Acute Plan to address problem: SCD to bilateral lower extremities while in bed 07/26/21 Patient fell and had ankle fracture: medial malleolus and fibula. Orthopedic Surgeon consulted. For surgery tomorrow. 07/27/21 Patient with ankle fracture after fall. For surgery today. 07/28/21 Patient with right medial nalleolus and fibula freacture s/p Open reduction internal fixation right ankle by Dr. Wills yesterday Today c/o not feeling right 1st,2nd and 3rd toes. History Interval history: pain right ankle at site of surgery Pt stes cannot feel right 1st,2nd and 3rd toes Hospitalist Physical - Physical exam Narrative exam: Gen: Not in acute distress, morbidly obese, lying in bed HEENT: Normocephalic, atraumatic Neck: supple, no JVD Lungs: Clear to auscultation, no rales, no wheeze Heart:S1 and S2 reg, no murmurs, rubs or gallop Abd: soft, non-tender,non-distended, normal bowel sounds Ext: cannot feel right 1st, 2nd and 3rd toes Neuro:AAO x 3, - Constitutional Vitals: Temp Pulse Resp BP Pulse Ox 98.7 F 104 H 19 134/85 98 07/28/21 05:50 07/28/21 05:50 07/28/21 05:50 07/28/21 05:50 07/28/21 08:00 General appearance: Present: obese Results - Labs CBC & Chem 7: 07/28/21 07:39 07/28/21 07:39 Labs: Laboratory Last Values WBC 9.5 K/mm3 (4.5-11.0) 07/28/21 07:39 RBC 3.73 M/mm3 (3.65-5.03) 07/28/21 07:39 Hgb 11.0 gm/dl (10.1-14.3) 07/28/21 07:39 Hct 33.7 % (30.3-42.9) 07/28/21 07:39 MCV 90 fl (79-97) 07/28/21 07:39 MCH 30 pg (28-32) 07/28/21 07:39 MCHC 33 % (30-34) 07/28/21 07:39 RDW 16.6 % (13.2-15.2) H 07/28/21 07:39 Plt Count 177 K/mm3 (140-440) 07/28/21 07:39 PT 12.5 Sec. (12.2-14.9) 07/25/21 15:49 INR 0.84 (0.87-1.13) L 07/25/21 15:49 APTT 28.6 Sec. (24.2-36.6) 07/25/21 15:49 Sodium 136 mmol/L (137-145) L 07/28/21 07:39 Potassium 3.9 mmol/L (3.6-5.0) 07/28/21 07:39 Chloride 101.9 mmol/L (98-107) 07/28/21 07:39 Carbon Dioxide 21 mmol/L (22-30) L 07/28/21 07:39 Anion Gap 17 mmol/L 07/28/21 07:39 BUN 7 mg/dL (7-17) 07/28/21 07:39 Creatinine 0.6 mg/dL (0.6-1.2) 07/28/21 07:39 Estimated GFR > 60 ml/min 07/28/21 07:39 BUN/Creatinine Ratio 12 % 07/28/21 07:39 Glucose 99 mg/dL (65-100) 07/28/21 07:39 Calcium 8.8 mg/dL (8.4-10.2) 07/28/21 07:39 Total Creatine Kinase 173 units/L (30-135) H 07/27/21 04:45 HCG, Quant < 2 mIU/mL (0-4) 07/25/21 15:49 Guy/IV: Voiding Method Bedpan Active Medications - Current Medications Current Medications: Generic Name Dose Route Start Last Admin Trade Name Freq PRN Reason Stop Dose Admin Acetaminophen 650 mg 07/25/21 12:45 Acetaminophen 325 Mg Tab PO Q4H PRN Pain MILD(1-3)/Fever >100.5/ALEJANDRO Hydromorphone HCl 0.5 mg 07/25/21 23:15 07/27/21 05:57 Hydromorphone 1 Mg/1 Ml Inj IV 0.5 mg Q4H PRN Administration Pain , Severe (7-10) Hydromorphone HCl 0.5 mg 07/27/21 13:38 07/27/21 16:05 Hydromorphone 1 Mg/1 Ml Inj IV 0.5 mg Q10MIN PRN Administration Pain , Severe (7-10) Sodium Chloride 1,000 mls @ 75 mls/hr 07/25/21 12:45 07/28/21 02:22 Nacl 0.9% 1000 Ml IV 125 mls/hr DIRECT KATIA Administration Ketorolac Tromethamine 15 mg 07/27/21 15:46 Ketorolac 30 Mg/1 Ml Inj IV 08/01/21 15:45 Q6H PRN Pain, Moderate (4-6) Labetalol HCl 5 mg 07/27/21 16:13 Labetalol 20 Mg/4 Ml Inj IV Q10MIN PRN Hypertension Morphine Sulfate 4 mg 07/27/21 15:46 07/28/21 08:44 Morphine 4 Mg/1 Ml Inj IV 4 mg Q4H PRN Administration Pain , Severe (7-10) Ondansetron HCl 4 mg 07/27/21 13:38 Ondansetron 4 Mg/2 Ml Inj IV ONCE PRN Nausea And Vomiting Oxycodone/Acetaminophen 1 tab 07/27/21 15:46 Oxycodone /Acetaminophen 5-325mg Tab PO Q6H PRN Pain, Moderate (4-6) Sodium Chloride 10 ml 07/25/21 22:00 07/28/21 09:01 Sodium Chloride 0.9% 10 Ml Flush Syringe IV 10 ml BID KATIA Administration Sodium Chloride 10 ml 07/25/21 12:45 Sodium Chloride 0.9% 10 Ml Flush Syringe IV PRN PRN LINE FLUSH
--- NOTE | 2021-07-28 13:34 | Discharge Summary ---
Providers - Providers Date of Admission: 07/25/21 12:45 Date of discharge: 07/28/21 Attending physician: SHEILA DEL CID 07/25/21 12:22 Consult to Physician [CONS] Urgent Comment: Consulting Provider: JASON WILLS Physician Instructions: Reason For Exam: right leg fracture 07/27/21 15:46 Consult to Case Management [CONS] Routine Services Needed at Discharge: Other DME Equipment Chef German Notified:: yes Phone number called:: [phone] Was contact made?: No Additional Physician Instructions: Assess Discharge needs. Physical Therapy Evaluation and Treat [CONS] Routine Comment: gait training PWB Rt LE Reason For Exam: post op evaluation Weight bearing status?: Partial wt bearing Assistive devices?: Yes If so list: Walker Primary care physician: [employer] Hospitalization Condition: Fair Disposition: 01 HOME / SELF CARE / HOMELESS Final Discharge Diagnosis (Prints w/discharge instructions): 1.Fracture right ankle s/p ORIF - Discharge Diagnoses (1) Ankle fracture, right Status: Acute Core Measure Documentation - Palliative Care Palliative Care/ Comfort Measures: Not Applicable - Core Measures Any of the following diagnoses?: none Exam - Constitutional Vitals: Temp Pulse Resp BP Pulse Ox 98.7 F 104 H 19 134/85 98 07/28/21 05:50 07/28/21 05:50 07/28/21 05:50 07/28/21 05:50 07/28/21 08:00 Plan Activity: other (As per physical therapy) Diet: low fat, low cholesterol Special Instructions: physical therapy (Home health), other (Follow up with Dr. Wills in 2 days) Durable Medical Equipment Needed Upon Discharge: other (Front wheel walker) Plan of Treatment: 1.Follow up with PCP in 1 week. 2.Follow up with Dr. Wills in 2 days Follow up with: PRIMARY CARE, [Primary Care Provider] - 3-5 Days Prescriptions: oxyCODONE /ACETAMINOPHEN [Percocet 5/325 mg] 1 tab PO Q6H PRN #12 tablet PRN Reason: Pain, Moderate (4-6)
[2021-07-28 18:46] VITALS: BP 132/75
== END 2021-07-28 20:20 | disposition home or self-care (01) | DRG 493 ==
LOC: ED 09:49 → 3A 12:45
PROVIDERS: ADMIT Internal Medicine; ATTEND Internal Medicine
PROC: 0QSG04Z Reposition Right Tibia with Internal Fixation Device, Open Approach (ICD-10-PCS; principal; 2021-07-27)
DX: S82.51XA Displaced fracture of medial malleolus of right tibia, initial encounter for closed fracture (principal); E66.2 Morbid (severe) obesity with alveolar hypoventilation; Z68.41 Body mass index [BMI] 40.0-44.9, adult; S82.401A Unspecified fracture of shaft of right fibula, initial encounter for closed fracture; W10.8XXA Fall (on) (from) other stairs and steps, initial encounter; Y93.89 Activity, other specified; Y92.098 Other place in other non-institutional residence as the place of occurrence of the external cause; Y99.8 Other external cause status; Z82.49 Family history of ischemic heart disease and other diseases of the circulatory system
CPT/HCPCS: 36415; 80048; 82550; 84702; 85027; 85610; 85730; 90715; G0378; J3490; J7120; Q0162; C1713; J0690; J1100; J1170; J1885; J2250; J2270; J2405; J2704; J3010; J7030

== ENCOUNTER 2022-01-29 18:03 | Emergency (ER) | payer SELFPAY ==
[2022-01-29 19:42] LABS: Basophils % (Auto) 0.8 % (0.0-1.8); Hematocrit 36.9 % (30.3-42.9); Hemoglobin 12.4 gm/dl (10.1-14.3); Lymphocytes # (Auto) 0.6 K/mm3 (1.2-5.4); Mean Corpuscular HGB Conc 34 % (30-34); Mean Corpuscular Volume 85 fl (79-97); Monocytes # (Auto) 0.2 K/mm3 (0.0-0.8); Monocytes % (Auto) 3.3 % (0.0-7.3); Platelet Count 159 K/mm3 (140-440); Red Blood Count 4.34 M/mm3 (3.65-5.03); Red Cell Distribution Width 16.5 % (13.2-15.2)
--- NOTE | 2022-01-29 19:53 | XRay Report ---
CHEST 2 VIEWS INDICATION: chest pain. COMPARISON: None FINDINGS: SUPPORT DEVICES: None. HEART: Within normal limits. LUNGS/PLEURA: No acute air space or interstitial disease. No pneumothorax. ADDITIONAL FINDINGS: None. IMPRESSION: 1. No acute findings. Signer Name: Yadiel Stephenson MD Signed: 01/29/2022 7:49 PM Workstation Name: [id number]
[2022-01-29 19:56] LABS: INR 0.92 (0.87-1.13)
[2022-01-29 19:57] LABS: Partial Thromboplastin Time 28.6 Sec. (24.2-36.6)
[2022-01-29 20:05] LABS: Alanine Aminotransferase 26 units/L (7-56); Albumin 4.8 g/dL (3.9-5); BUN/Creatinine Ratio 11; Blood Urea Nitrogen 9 mg/dL (7-17); Calcium 9.4 mg/dL (8.4-10.2); Hemolysis Index 20
[2022-01-29] MEDS ORDERED: MORPHINE 4 MG/1 ML INJ IV ONE (21:22)
[2022-01-29] MEDS ORDERED: ONDANSETRON 4 MG/2 ML INJ IV ONE (21:22)
[2022-01-29] MEDS ORDERED: SODIUM CHLORIDE 0.9% 1000 ML 1,000 ML IV ONE (21:23)
--- NOTE | 2022-01-29 22:22 | Cat Scan Report ---
CTA CHEST WITH CONTRAST INDICATION / CLINICAL INFORMATION: Chest pain with S.O.B. since 7 a.m., possible P.E.. TECHNIQUE: Axial CT images were obtained through the chest after injection of 100 cc Omnipaque 350 IV contrast. 3 plane MIP and/or 3D reconstructions were produced. All CT scans at this location are per formed using CT dose reduction for ALARA by means of automated exposure control. COMPARISON: 2 views of the chest performed today. FINDINGS: PULMONARY EMBOLUS: None. THORACIC AORTA: No significant abnormality. HEART: No significant abnormality. CORONARY ARTERY CALCIFICATION: Absent -- None. MEDIASTINUM / ARMINDA: No significant abnormality. PLEURA: No pleural effusion. No pneumothorax. LUNGS: No acute air space or interstitial disease. ADDITIONAL FINDINGS: None. UPPER ABDOMEN: No acute findings. There is severe hepatic steatosis. SKELETAL STRUCTURES: No significant osseous abnormality. IMPRESSION: 1. No CT evidence for pulmonary embolism. 2. No acute findings. Signer Name: Saman Curiel MD Signed: 01/29/2022 10:18 PM Workstation Name: [id number]
--- NOTE | 2022-01-29 22:25 | Emergency Department Report ---
ED General Adult HPI - General Chief complaint: Chest Pain Stated complaint: CHEST PAIN Time Seen by Provider: 01/29/22 21:32 Source: patient Mode of arrival: Ambulatory Limitations: No Limitations - History of Present Illness Initial comments: Patient 31-year-old female with history of PE and DVT who presents for chest pain shortness of breath for a week. Patient states she was on Eliquis in September of this year. However she has been on medication since October. Patient states she moved to [place] from [facility] has been unable to get her medications. Patient states intermittent nausea vomiting , heart burn, and shortness of breath. Patient denies smoking. No EtOH today occasional ETOH. Patient is however tolerating p.o. intake at this time without nausea or vomiting. Patient denies fevers or chills. Rates chest pain at 5/10. Pain exacerbated by deep inspiration and movement. Pain is relieved by nothing tried. Patient denies fall injury or trauma. There is cough no hemoptysis. Other history includes depression. There is no SI or HI today. Severity scale (0 -10): 8 - Related Data Previous Rx's Medication Instructions Recorded Last Taken Type RX: oxyCODONE /ACETAMINOPHEN 1 tab PO Q6H PRN #12 tablet 07/28/21 Unknown Rx [Percocet 5/325 mg] Famotidine [Pepcid] 20 mg PO BID #60 tablet 01/29/22 Unknown Rx RX: Naproxen 500 mg PO BID PRN #30 tab 01/29/22 Unknown Rx Allergies Allergy/AdvReac Type Severity Reaction Status Date / [facility] Allergy Severe Anaphylaxis Verified 07/25/21 12:54 ED Review of Systems ROS: Stated complaint: CHEST PAIN Other details as noted in HPI Constitutional: malaise. denies: chills, fever Eyes: denies: eye pain, eye discharge, vision change ENT: congestion Respiratory: cough, shortness of breath. denies: wheezing Cardiovascular: chest pain. denies: palpitations, dyspnea on exertion, paroxysmal nocturnal dyspnea Endocrine: no symptoms reported Gastrointestinal: nausea, vomiting. denies: abdominal pain (Epigastric), diarrhea Genitourinary: denies: urgency, dysuria, discharge Musculoskeletal: denies: back pain, joint swelling, arthralgia Skin: denies: rash, lesions Neurological: denies: headache, weakness, paresthesias Psychiatric: denies: anxiety, depression Hematological/Lymphatic: denies: easy bleeding, easy bruising ED Past Medical Hx - Past Medical History Hx Hypertension: No Hx Pulmonary Embolism: Yes (07/2021) Hx Liver Disease: No Hx Renal Disease: No Additional medical history: anxiety, bipolar ( non compliant ) - Surgical History Additional Surgical History: right ankle - Social History Smoking Status: Never Smoker Substance Use Type: None - Medications Home Medications: Home Medications Medication Instructions Recorded Confirmed Last Taken Type RX: oxyCODONE /ACETAMINOPHEN 1 tab PO Q6H PRN #12 tablet 07/28/21 Unknown Rx [Percocet 5/325 mg] Famotidine [Pepcid] 20 mg PO BID #60 tablet 01/29/22 Unknown Rx RX: Naproxen 500 mg PO BID PRN #30 tab 01/29/22 Unknown Rx ED Physical Exam - General Limitations: No Limitations General appearance: alert, in no apparent distress - Head Head exam: Present: normocephalic, normal inspection - Eye Eye exam: Present: PERRL, EOMI. Absent: conjunctival injection, nystagmus Pupils: Present: normal accommodation - ENT ENT exam: Present: normal orophraynx, mucous membranes moist - Neck Neck exam: Present: normal inspection, full ROM. Absent: tenderness, meningismus - Respiratory Respiratory exam: Present: normal lung sounds bilaterally, chest wall tenderness (Right anterior chest wall no crepitus no step-off no ecchymosis). Absent: respiratory distress, wheezes, rales, rhonchi, stridor, accessory muscle use, decreased breath sounds, prolonged expiratory - Cardiovascular Cardiovascular Exam: Present: regular rate, normal rhythm, normal heart sounds. Absent: systolic murmur, diastolic murmur, rubs, gallop - GI/Abdominal GI/Abdominal exam: Present: soft, normal bowel sounds. Absent: distended, tenderness, guarding, rebound, rigid, bruit, hernia - Rectal Rectal exam: Present: deferred - Extremities Exam Extremities exam: Present: normal inspection, full ROM, normal capillary refill, other (No pain with dorsiflexion pulses intact +2). Absent: tenderness, pedal edema, joint swelling, calf tenderness - Back Exam Back exam: Present: normal inspection, full ROM. Absent: CVA tenderness (R), CVA tenderness (L) - Neurological Exam Neurological exam: Present: alert, oriented X3, CN II-XII intact, normal gait - Expanded Neurological Exam Expanded Patient oriented to: Present: person, place, time Speech: Present: fluid speech Motor strength exam: RUE: 5, LUE: 5, RLE: 5, LLE: 5 Best Eye Response (Scott): (4) open spontaneously Best Motor Response (Graham): (6) obeys commands Best Verbal Response (Scott): (5) oriented Scott Total: 15 - Psychiatric Psychiatric exam: Present: normal affect, normal mood - Skin Skin exam: Present: warm, dry, intact, normal color. Absent: rash ED Course Vital Signs 01/29/22 18:37 Temperature 97.9 F Pulse Rate 103 H Respiratory 20 Rate Blood Pressure 141/101 O2 Sat by Pulse 95 Oximetry ED Medical Decision Making - Lab Data Result diagrams: 01/29/22 19:10 01/29/22 19:10 Labs 01/29/22 01/29/22 01/29/22 19:10 19:10 19:10 WBC 6.3 RBC 4.34 Hgb 12.4 Hct 36.9 MCV 85 MCH 29 MCHC 34 RDW 16.5 H Plt Count 159 Lymph % (Auto) 9.0 L Curry % (Auto) 3.3 Eos % (Auto) 0.0 Baso % (Auto) 0.8 Lymph # (Auto) 0.6 L Curry # (Auto) 0.2 Eos # (Auto) 0.0 Baso # (Auto) 0.0 Seg Neutrophils % 86.9 H Seg Neutrophils # 5.4 PT 13.3 INR 0.92 APTT 28.6 D-Dimer 1275.36 H Sodium 137 Potassium 4.1 Chloride 93.3 L Carbon Dioxide 24 Anion Gap 24 BUN 9 Creatinine 0.8 Estimated GFR > 60 BUN/Creatinine Ratio 11 Glucose 91 Calcium 9.4 Total Bilirubin 2.40 H AST 47 H ALT 26 Alkaline Phosphatase 91 Troponin T < 0.010 Total Protein 8.4 H Albumin 4.8 Albumin/Globulin Ratio 1.3 - EKG Data EKG shows normal: sinus rhythm, axis, intervals, QRS complexes, ST-T waves Rate: tachycardia - EKG Data When compared to previous EKG there are: previous EKG unavailable Interpretation: other (Normal sinus rhythm no ST elevated SC interpreted by ED attending) - Radiology Data Radiology results: report reviewed, image reviewed CHEST 2 VIEWS INDICATION: chest pain. COMPARISON: None FINDINGS: SUPPORT DEVICES: None. HEART: Within normal limits. LUNGS/PLEURA: No acute air space or interstitial disease. No pneumothorax. ADDITIONAL FINDINGS: None. IMPRESSION: 1. No acute findings. Signer Name: Yadiel Stephenson MD Signed: 01/29/2022 7:49 PM Workstation Name: [id number] Transcribed By: ESTEFANIA Dictated By: Yadiel Stephenson MD Electronically Authenticated By: Yadiel Stephenson MD Signed Date/Time: 01/29/221948 DD/ 47 TD/TT: CTA CHEST WITH CONTRAST INDICATION / CLINICAL INFORMATION: Chest pain with S.O.B. since 7 a.m., possible P.E.. TECHNIQUE: Axial CT images were obtained through the chest after injection of 100 cc Omnipaque 350 IV contrast. 3 plane MIP and/or 3D reconstructions were produced. All CT scans at this location are performed using CT dose reduction for ALARA by means of automated exposure control. COMPARISON: 2 views of the chest performed today. FINDINGS: PULMONARY EMBOLUS: None. THORACIC AORTA: No significant abnormality. HEART: No significant abnormality. CORONARY ARTERY CALCIFICATION: Absent -- None. MEDIASTINUM / ARMINDA: No significant abnormality. PLEURA: No pleural effusion. No pneumothorax. LUNGS: No acute air space or interstitial disease. ADDITIONAL FINDINGS: None. UPPER ABDOMEN: No acute findings. There is severe hepatic steatosis. SKELETAL STRUCTURES: No significant osseous abnormality. IMPRESSION: 1. No CT evidence for pulmonary embolism. 2. No acute findings. Signer Name: Saman Curiel MD Signed: 01/29/2022 10:18 PM Workstation Name: [id number] Transcribed By: LARISSA Dictated By: Saman Curiel MD Electronically Authenticated By: Saman Curiel MD Signed Date/Time: 01/29/222217 DD/ 15 TD/TT: - Medical Decision Making Chest x-ray normal no infiltrates no opacities, heart score is 0, DASHA score 0, CTA chest negative for PE, noted fatty liver disease. D-dimer as above labs as above. Pain is improved at this time patient is tolerating p.o. intake. There is no lower extremity edema no lower extremity Homans' sign distal pulses are intact range of motion is intact patient is amatory without shortness of breath there is no wheezing or stridor. No respiratory distress. Patient advised to stop EtOH abuse. Critical care attestation.: If time is entered above; I have spent that time in minutes in the direct care of this critically ill patient, excluding procedure time. ED Disposition Clinical Impression: ETOH abuse Abdominal pain Qualifiers: Abdominal location: generalized Qualified Code(s): R10.84 - Generalized abdominal pain Disposition: HOME / SELF CARE / HOMELESS Is pt being admited?: No Does the pt Need Aspirin: No Condition: Stable Instructions: Alcohol Use Disorder, Abdominal Pain, Adult, [id number] Additional Instructions: Take medications as prescribed, stop alcohol abuse, follow-up with your doctor in 2 to 3 days. Return to emergency department should symptoms worsen. Prescriptions: RX: Naproxen 500 mg PO BID PRN #30 tab PRN Reason: Pain Famotidine [Pepcid] 20 mg PO BID #60 tablet Referrals: AASHISH HOLCOMB MD [Staff Physician] - 3-5 Days Forms: Work/School Release Form(ED) Time of Disposition: 22:48
[2022-01-30 00:04] VITALS: BP 134/88
--- NOTE | 2022-01-30 09:06 | Electrocardiograph Report ---
[facility] Test Date: 2022-01-29 Test Time: 19:02:23 Pat Name: CHRIS WILCOX Department: Room: Gender: F Credit Card Associate: BRANDON RUCKERB: 1990 Requested By: REKHA HACKETT Order Number: [id number] Reading MD: Alec Canseco Measurements Intervals [place] Rate: 101 P: 63 MO: 117 QRS: 53 QRSD: 74 T: 12 QT: 348 QTc: 451 Interpretive Statements Sinus tachycardia Probable left atrial enlargement No previous ECG available for comparison Electronically Signed On 01-30-2022 9:06:45 EDT by Alec Canseco
== END 2022-01-30 00:03 | disposition home or self-care (01) ==
LOC: ED 18:03
DX: F10.10 Alcohol abuse, uncomplicated (principal); R10.84 Generalized abdominal pain; R07.89 Other chest pain; F41.9 Anxiety disorder, unspecified; F31.9 Bipolar disorder, unspecified; Z79.899 Other long term (current) drug therapy; Z88.8 Allergy status to other drugs, medicaments and biological substances; Y90.9 Presence of alcohol in blood, level not specified
CPT/HCPCS: 36415; 71046; 71275; 80053; 84484; 85025; 85379; 85610; 85730; 93005; 96361; 96374; 96375; 99284; J2270; J2405; J7030; Q9967

== ENCOUNTER 2022-01-30 01:34 | Emergency (ER) | payer SELFPAY ==
[2022-01-30 02:24] VITALS: BP 190/104
--- NOTE | 2022-01-30 02:27 | Emergency Department Report ---
ED Psych HPI - General Chief Complaint: Psych Stated Complaint: DIZZY Time Seen by Provider: 01/30/22 02:22 Source: patient Mode of arrival: Ambulatory - History of Present Illness Initial Comments: Patient is 31 years old female with history of bipolar disorder. Patient was seen here earlier today for abdominal pain and when she was discharged patient was asked by the triage nurse if she is having any suicidal thoughts, patient answered a little bit. Patient brought back to the main ED for psych evaluation. When I talked to the patient patient is alert, oriented x3 in no acute distress. Patient denied any suicidal ideation. She stated that she has history of bipolar disorder and she is out of her medicine for 3 months but she is not experiencing any thoughts of suicidal, homicidal. She stated that she is not hearing any voices or having any hallucination. Patient does not want to stay and stated that she wanted go home. Patient is able to make sound decision and there is no reasons for involuntary hold at this moment. I counseled patient about her bipolar disorder and advised to follow-up with psychiatric in the next 2 to 3 days and advised her to return to the ER if she develop any new symptoms. MD Complaint: suicidal ideation - Related Data Previous Rx's Medication Instructions Recorded Last Taken Type oxyCODONE /ACETAMINOPHEN [Percocet 1 tab PO Q6H PRN #12 tablet 07/28/21 Unknown Rx 5/325 mg] Famotidine [Pepcid] 20 mg PO BID #60 tablet 01/29/22 Unknown Rx Naproxen 500 mg PO BID PRN #30 tab 01/29/22 Unknown Rx Allergies Allergy/AdvReac Type Severity Reaction Status Date / [facility] Allergy Severe Anaphylaxis Verified 07/25/21 12:54 ED Review of Systems ROS: Stated complaint: DIZZY Other details as noted in HPI Comment: All other systems reviewed and negative Constitutional: denies: chills, fever Respiratory: denies: cough, shortness of breath, SOB with exertion Gastrointestinal: denies: abdominal pain, nausea, vomiting, diarrhea, constipation, hematemesis Neurological: denies: headache, weakness, numbness, paresthesias, confusion Psychiatric: denies: anxiety, depression, auditory hallucinations, visual hallucinations, homicidal thoughts, suicidal thoughts ED Past Medical Hx - Past Medical History Hx Hypertension: No Hx Pulmonary Embolism: Yes (07/2021) Hx Liver Disease: No Hx Renal Disease: No Additional medical history: anxiety, bipolar ( non compliant ) - Surgical History Additional Surgical History: right ankle - Social History Smoking Status: Never Smoker Substance Use Type: None - Medications Home Medications: Home Medications Medication Instructions Recorded Confirmed Last Taken Type oxyCODONE /ACETAMINOPHEN [Percocet 1 tab PO Q6H PRN #12 tablet 07/28/21 Unknown Rx 5/325 mg] Famotidine [Pepcid] 20 mg PO BID #60 tablet 01/29/22 Unknown Rx Naproxen 500 mg PO BID PRN #30 tab 01/29/22 Unknown Rx ED Physical Exam - General Limitations: No Limitations General appearance: alert, in no apparent distress - Head Head exam: Present: atraumatic, normocephalic, normal inspection - Eye Eye exam: Present: normal appearance - ENT ENT exam: Present: normal exam, normal orophraynx, mucous membranes moist - Neck Neck exam: Present: normal inspection, full ROM. Absent: tenderness, meningismus - Respiratory Respiratory exam: Present: normal lung sounds bilaterally - Cardiovascular Cardiovascular Exam: Present: regular rate, normal rhythm, normal heart sounds - GI/Abdominal GI/Abdominal exam: Present: soft, normal bowel sounds. Absent: distended, tenderness, guarding, rebound, rigid, organomegaly, mass, bruit, pulsatile mass, hernia - Extremities Exam Extremities exam: Present: normal inspection, full ROM, normal capillary refill. Absent: tenderness - Back Exam Back exam: Present: normal inspection, full ROM. Absent: CVA tenderness (R), CVA tenderness (L) - Neurological Exam Neurological exam: Present: alert, oriented X3, CN II-XII intact, normal gait, reflexes normal. Absent: motor sensory deficit - Psychiatric Psychiatric exam: Present: normal mood. Absent: depressed, agitated, anxious, flat affect, manic, homicidal ideation, suicidal ideation - Skin Skin exam: Present: warm, intact, normal color ED Course Vital Signs 01/30/22 01:55 Temperature 98.1 F Pulse Rate 108 H Respiratory 18 Rate Blood Pressure 190/104 O2 Sat by Pulse 97 Oximetry Critical care attestation.: If time is entered above; I have spent that time in minutes in the direct care of this critically ill patient, excluding procedure time. ED Disposition Clinical Impression: Bipolar disorder Disposition: HOME / SELF CARE / HOMELESS Is pt being admited?: No Condition: Stable Instructions: Managing Bipolar Disorder Referrals: PRIMARY CARE, [Referring] - 3-5 Days
== END 2022-01-30 07:00 | disposition home or self-care (01) ==
LOC: ED 01:34
DX: F31.9 Bipolar disorder, unspecified (principal); F41.9 Anxiety disorder, unspecified; Z86.711 Personal history of pulmonary embolism; Z88.8 Allergy status to other drugs, medicaments and biological substances; Z79.899 Other long term (current) drug therapy
CPT/HCPCS: 99282

== ENCOUNTER 2022-01-30 07:13 | Emergency (ER) | payer SELFPAY ==
[2022-01-30 09:52] LABS: Amphetamine Screen,Urine Negative; Benzodiazepines Screen,Urine Negative; Cannabinoid Screen,Urine Negative; Cocaine Screen,Urine Negative; Methadone Screen,Urine Negative
[2022-01-30 09:58] LABS: Bacteria,Urine 1+ /HPF (Negative); Bilirubin,Urine NEG (Negative); Blood,Urine NEG (Negative); Color,Urine Yellow (Yellow); Mucus,Urine FEW /HPF
[2022-01-30 10:19] LABS: Opiate Screen,Urine Positive
--- NOTE | 2022-01-30 11:05 | Emergency Department Report ---
ED Psych HPI - General Chief Complaint: Psych Stated Complaint: SICK DAY Time Seen by Provider: 01/30/22 09:28 Source: patient Mode of arrival: Ambulatory - History of Present Illness Initial Comments: 31-year-old female with a history of anxiety, bipolar and schizophrenia who now presents with suicidal ideation and increasing stressor. Pt denies any homicidal ideation but reports suicide ideation. No other modifying or associated factors. - Related Data Previous Rx's Medication Instructions Recorded Last Taken Type oxyCODONE /ACETAMINOPHEN [Percocet 1 tab PO Q6H PRN #12 tablet 07/28/21 Unknown Rx 5/325 mg] Famotidine [Pepcid] 20 mg PO BID #60 tablet 01/29/22 Unknown Rx Naproxen 500 mg PO BID PRN #30 tab 01/29/22 Unknown Rx Allergies Allergy/AdvReac Type Severity Reaction Status Date / Time ziprasidone [From Geodon] Allergy Severe Anaphylaxis Verified 01/30/22 07:23 ED Review of Systems ROS: Stated complaint: SICK DAY Other details as noted in HPI Comment: All other systems reviewed and negative Psychiatric: anxiety, depression, suicidal thoughts ED Past Medical Hx - Past Medical History Hx Hypertension: No Hx Pulmonary Embolism: Yes (07/2021) Hx Liver Disease: No Hx Renal Disease: No Additional medical history: anxiety, bipolar ( non compliant ) - Surgical History Additional Surgical History: right ankle - Social History Smoking Status: Never Smoker Substance Use Type: None - Medications Home Medications: Home Medications Medication Instructions Recorded Confirmed Last Taken Type oxyCODONE /ACETAMINOPHEN [Percocet 1 tab PO Q6H PRN #12 tablet 07/28/21 Unknown Rx 5/325 mg] Famotidine [Pepcid] 20 mg PO BID #60 tablet 01/29/22 Unknown Rx Naproxen 500 mg PO BID PRN #30 tab 01/29/22 Unknown Rx ED Physical Exam - General Limitations: No Limitations General appearance: alert, in no apparent distress - Head Head exam: Present: normal inspection - Eye Eye exam: Present: normal appearance Pupils: Present: normal accommodation - ENT ENT exam: Present: normal exam, normal orophraynx, mucous membranes moist - Neck Neck exam: Present: normal inspection, full ROM. Absent: tenderness, meningismus - Respiratory Respiratory exam: Present: normal lung sounds bilaterally. Absent: respiratory distress, accessory muscle use - Cardiovascular Cardiovascular Exam: Present: regular rate, normal rhythm - GI/Abdominal GI/Abdominal exam: Present: soft, normal bowel sounds. Absent: distended, tenderness - Extremities Exam Extremities exam: Present: normal inspection, full ROM, normal capillary refill. Absent: tenderness - Back Exam Back exam: Absent: tenderness - Neurological Exam Neurological exam: Present: alert, oriented X3 - Psychiatric Psychiatric exam: Present: normal affect, anxious - Skin Skin exam: Present: warm, intact ED Course Vital Signs 01/30/22 01/30/22 01/30/22 07:20 10:46 12:15 Temperature 98.1 F 98.9 F Pulse Rate 111 H 88 103 H Respiratory 18 16 18 Rate Blood Pressure 176/100 119/74 164/100 [Left] O2 Sat by Pulse 96 97 99 Oximetry 01/30/22 01/31/22 01/31/22 20:18 09:35 09:40 Temperature 98.2 F 98.2 F Pulse Rate 115 H 90 Respiratory 18 20 Rate Blood Pressure 162/108 140/87 [Left] O2 Sat by Pulse 96 98 99 Oximetry 01/31/22 02/01/22 02/01/22 20:36 03:42 06:14 Temperature 99.1 F 98.9 F Pulse Rate 102 H 96 H Respiratory 18 18 Rate Blood Pressure 140/91 142/87 [Left] O2 Sat by Pulse 97 98 99 Oximetry 02/01/22 08:08 Temperature 97.2 F L Pulse Rate 101 H Respiratory 18 Rate Blood Pressure 130/94 [Left] O2 Sat by Pulse 97 Oximetry - Reevaluation(s) Reevaluation #1: 01/30/22 12:19 here with suicide ideation -- will order routine labs and consult with mental health-- Reevaluation #2: 01/30/22 12:19 Got a call to patient's room with likely allergy vs panic attack after eating grilled chicken sandwich --given ativan, benadryl, solumedrol + pepcid-- and started on ivf ns 1L bolus and will continue to monitor -- Reevaluation #3: 01/30/22 13:06 Patient report feeling much better and was able to go to the bathroom and urinate--she is transferred back to psych unit for further evaluation and treatment. ED Medical Decision Making - Lab Data Result diagrams: 01/30/22 10:18 01/30/22 14:45 Critical care attestation.: If time is entered above; I have spent that time in minutes in the direct care of this critically ill patient, excluding procedure time. ED Disposition Clinical Impression: Panic attack Allergic reaction Qualifiers: Encounter type: initial encounter Qualified Code(s): T78.40XA - Allergy, unspecified, initial encounter Disposition: HOME / SELF CARE / HOMELESS Is pt being admited?: No Does the pt Need Aspirin: No Condition: Stable Instructions: Allergies, Adult, [id number], Panic Attack, [id number] Additional Instructions: Professional and Agency Contacts To help [facility] Crises (24/03) MD Crisis Line: Suicide Prevention Line: Crisis Text Line: Text START to 655312 Emergency: 911 Outpatient COMMUN[facility] Behavioral Health Resources: [place]: [facility] [address] [place], [place] [address] [facility] [address] [place] [address] Friday thru Friday - 8am - 5pm Call to schedule an assessment for mental health and substance abuse programs [facility] Address: [address] [place] [address] Friday thru Friday- 7am-2pm [facility] Address: [address] [place] [address] Friday thru Friday: 8:30AM-5PM Referrals: PRIMARY CARE, [Primary Care Provider] - 3-5 Days
[2022-01-30 11:22] LABS: BUN/Creatinine Ratio 8; Blood Urea Nitrogen 7 mg/dL (7-17); Calcium 9.4 mg/dL (8.4-10.2); Hemolysis Index 4
[2022-01-30] MEDS ORDERED: LORazepam 1 MG TAB PO ONE (11:40)
[2022-01-30 11:47] LABS: Basophils % (Auto) 0.3 % (0.0-1.8); Eosinophils % (Auto) 0.1 % (0.0-4.3); Hematocrit 34.8 % (30.3-42.9); Hemoglobin 11.5 gm/dl (10.1-14.3); Lymphocytes # (Auto) 0.9 K/mm3 (1.2-5.4); Lymphocytes % (Auto) 14.8 % (13.4-35.0); Mean Corpuscular HGB Conc 33 % (30-34); Mean Corpuscular Volume 85 fl (79-97); Monocytes # (Auto) 0.4 K/mm3 (0.0-0.8); Monocytes % (Auto) 5.8 % (0.0-7.3); Platelet Count 135 K/mm3 (140-440); Red Blood Count 4.09 M/mm3 (3.65-5.03); Red Cell Distribution Width 16.4 % (13.2-15.2)
[2022-01-30] MEDS ORDERED: diphenhydrAMINE 50 MG/ML VIAL IM ONE (11:54)
[2022-01-30] MEDS ORDERED: diphenhydrAMINE 50 MG/ML VIAL ONE (11:55)
[2022-01-30] MEDS ORDERED: methylPREDNISolone Sod Succinate 125 MG/2 ML INJ ONE ×2 (12:04→12:07)
[2022-01-30] MEDS ORDERED: FAMOTIDINE 20 MG/2 ML INJ IV ONE ×3 (12:04→12:12)
[2022-01-30] MEDS ORDERED: methylPREDNISolone Sod Succinate 125 MG/2 ML INJ IV ONE (12:12)
--- NOTE | 2022-01-30 12:27 | Consultation ---
History of Present Illness - Reason for Consult Consult date: 01/30/22 Reason for consult: Mental health evaluation - History of Present Psychiatric Illness ED Note: 31-year-old female with a history of anxiety, bipolar and schizophrenia who now presents with suicidal ideation and increasing stressor. Pt denies any homicidal ideation but reports suicide ideation. No other modifying or associated factors. The patient was seen today. She was seen experiencing panic attack; SOB, hyperventilating, nausea and vomiting. Nurse at the bedside. PAST PSYCHIATRIC HISTORY: PAST MEDICAL HISTORY: None reported or document Family Psychiatric History: None reported or documented SOCIAL HISTORY REVIEW OF SYSTEMS MENTAL STATUS EXAMINATION Diagnoses: Bipolar Panic disorder Treatment Plan 1013 Continue home meds Klonopin 0.5mg po BID Vistaril 25mg po Q6hrs PRN Sertraline 25mg po daily PSYCHOTHERAPY: Supportive psychotherapy provided MEDICAL: Per primary team DELIRIUM PRECAUTIONS: Please re-orient patient frequently, keep lights on during the day, and minimize benzodiazepines and opiates as these medications could worsen patient's confusion. 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 Will follow. Thank you for the consult. Case staffed with Dr. Tabor Medications and Allergie Medications and Allergies Allergies Allergy/AdvReac Type Severity Reaction Status Date / Time ziprasidone [From Geodon] Allergy Severe Anaphylaxis Verified 01/30/22 07:23 Home Medications Medication Instructions Recorded Confirmed Last Taken Type oxyCODONE /ACETAMINOPHEN [Percocet 1 tab PO Q6H PRN #12 tablet 07/28/21 Unknown Rx 5/325 mg] Famotidine [Pepcid] 20 mg PO BID #60 tablet 01/29/22 Unknown Rx Naproxen 500 mg PO BID PRN #30 tab 01/29/22 Unknown Rx Mental Status Exam - Vital signs Last Vital Signs Temp 98.9 F 01/30/22 10:46 Pulse 103 H 01/30/22 12:15 Resp 18 01/30/22 12:15 BP 164/100 01/30/22 12:15 Pulse Ox 99 01/30/22 12:15 Results Result Diagrams: 01/30/22 10:18 01/30/22 10:18 Abnormal lab results 01/30/22 01/30/22 01/30/22 Range/Units 09:28 10:18 10:18 RDW 16.4 H (13.2-15.2) % Plt Count 135 L (140-440) K/mm3 Lymph # (Auto) 0.9 L (1.2-5.4) K/mm3 Seg Neutrophils % 79.0 H (40.0-70.0) % Sodium 133 L (137-145) mmol/L Potassium 3.4 L (3.6-5.0) mmol/L Chloride 93.1 L (98-107) mmol/L Ur Specific Rentz > 1.030 H (1.003-1.030) Urine WBC (Auto) 30.0 H (0.0-6.0) /HPF U Epithel Cells (Auto) 32.0 H (0-13.0) /HPF Salicylates (2.8-20.0) mg/dL Acetaminophen (10.0-30.0) ug/mL 01/30/22 01/30/22 Range/Units 10:18 10:18 RDW (13.2-15.2) % Plt Count (140-440) K/mm3 Lymph # (Auto) (1.2-5.4) K/mm3 Seg Neutrophils % (40.0-70.0) % Sodium (137-145) mmol/L Potassium (3.6-5.0) mmol/L Chloride (98-107) mmol/L Ur Specific Rentz (1.003-1.030) Urine WBC (Auto) (0.0-6.0) /HPF U Epithel Cells (Auto) (0-13.0) /HPF Salicylates < 0.3 L (2.8-20.0) mg/dL Acetaminophen 5.0 L (10.0-30.0) ug/mL All other labs normal.
[2022-01-30] MEDS ORDERED: hydrOXYzine PAMOATE 25 MG CAP PO PRN (12:28)
[2022-01-30 15:38] LABS: BUN/Creatinine Ratio 9; Blood Urea Nitrogen 8 mg/dL (7-17); Calcium 9.7 mg/dL (8.4-10.2); Hemolysis Index 11
[2022-01-30] MEDS ORDERED: LORazepam 2 MG/ML VIAL IM ONE (17:51)
[2022-01-30] MEDS ORDERED: HALOPERIDOL LACTATE 5 MG/1 ML INJ IM ONE (17:52)
[2022-01-30] MEDS: clonazePAM 0.5 MG TAB PO SCH (23:00)
[2022-01-31] MEDS ORDERED: SERTRALINE 25 MG TAB PO SCH (10:00)
[2022-01-31] MEDS: clonazePAM 0.5 MG TAB PO SCH (10:53)
--- NOTE | 2022-01-31 11:08 | Progress Note ---
Subjective - Reason for Consult Consult date: 01/31/22 Reason for consult: mental health evaluation - Chief Complaint Chief complaint: The patient was seen today. She reports that her friends brought her to the ED yesterday because she lost her mother. The patient seems to be confused and asking weird questions; unable to verify her statement. She denies any current suicidal/homicidal ideation and denies hallucinations. REVIEW OF SYSTEMS Constitutional: Negative for weight loss ENT: Negative for stridor Respiratory: Negative for cough or hemoptysis All other systems reviewed and are negative MENTAL STATUS EXAMINATION General Appearance and Behavior: Age appropriate, wearing appropriate clothes, cooperative, polite with questioning, good eye contact, calm, polite Cooperation: cooperative Psychomotor Behavior: Psychomotor normal Mood: Confused Affect and affective range: Congruent with stated mood Thought Process: Circumstantial Thought Content:confused Speech: Normal volume, Regular rate and rhythm Suicidal Ideation: Denies Homicidal Ideation: Denies Hallucination: Denies Delusions: None Impulse Control: limited Insight and Judgment: Limited Insight and judgment Memory: impaired Attention: attentive Orientation: Alert and oriented Diagnoses: Bipolar Panic disorder Hx of schizophrenia Treatment Plan 1013 Continue home meds Vistaril 25mg po Q6hrs PRN Sertraline 25mg po daily Zyprexa 5mg po QHS PSYCHOTHERAPY: Supportive psychotherapy provided MEDICAL: Per primary team DELIRIUM PRECAUTIONS: Please re-orient patient frequently, keep lights on during the day, and minimize benzodiazepines and opiates as these medications could worsen patient's confusion. 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 Will sign off. Thank you for the consult. Case staffed with Dr. Tabor Mental Status Exam - Vital signs Last Vital Signs Temp 98.2 F 01/31/22 09:35 Pulse 90 01/31/22 09:35 Resp 20 01/31/22 09:35 BP 140/87 01/31/22 09:35 Pulse Ox 99 01/31/22 09:40
--- NOTE | 2022-01-31 15:54 | Emergency Department Report ---
Blank Doc - Documentation Documentation: I have evaluated and rounded on patient. Patient is currently on a 1013 and p janakchiatrsera recommends the patient remain on 1013.
[2022-02-01 08:10] VITALS: BP 130/94
== END 2022-02-01 09:22 | disposition home or self-care (01) ==
LOC: ED 07:13 → EEVIPCON 07:13 → ED 02-01 09:22
DX: T78.40XA Allergy, unspecified, initial encounter (principal); F41.0 Panic disorder [episodic paroxysmal anxiety]; F31.9 Bipolar disorder, unspecified; Z20.822 Contact with and (suspected) exposure to COVID-19; Z88.8 Allergy status to other drugs, medicaments and biological substances; Z79.899 Other long term (current) drug therapy; X58.XXXA Exposure to other specified factors, initial encounter
CPT/HCPCS: 36415; 80048; 80307; 81001; 85025; 87086; 96372; 96374; 96375; 99284; J1200; J1630; J2060; J2930; J3490; U0003; 80320; G0480